=== PATIENT | female | born 1945 | race Caucasian/White ===

== ENCOUNTER 2020-12-03 13:22 | Outpatient (CLI) | payer OTHER | END 2020-12-03 13:40 | disposition home or self-care (01) | LOC: EDBD 13:22 → MAMO-SONO 13:22 | DX: Z12.31 Encounter for screening mammogram for malignant neoplasm of breast (principal) ==

== ENCOUNTER 2021-12-31 07:45 | Outpatient (CLI) | payer OTHER | END 2021-12-31 07:56 | disposition home or self-care (01) | LOC: MAMO-SONO 07:45 | PROVIDERS: ATTEND Internal Medicine | DX: Z12.31 Encounter for screening mammogram for malignant neoplasm of breast (principal); N63.0 Unspecified lump in unspecified breast; E04.1 Nontoxic single thyroid nodule ==

== ENCOUNTER 2022-02-13 14:42 | Outpatient (CLI) | payer OTHER | END 2022-02-13 14:43 | disposition home or self-care (01) | LOC: SONOGRAMA 14:42 | PROVIDERS: ATTEND Pathology Anatomic Pathology & Clinical Pathology | DX: E04.1 Nontoxic single thyroid nodule (principal) ==

== ENCOUNTER 2022-02-27 11:32 | Outpatient (CLI) | payer OTHER | END 2022-02-27 11:40 | disposition home or self-care (01) | LOC: SONOGRAMA 11:32 | PROVIDERS: ATTEND Pathology Anatomic Pathology & Clinical Pathology | DX: N18.2 Chronic kidney disease, stage 2 (mild) (principal) ==

== ENCOUNTER 2023-01-21 09:42 | Outpatient (CLI) | payer OTHER | END 2023-01-21 09:58 | disposition home or self-care (01) | LOC: MRI 09:42 | PROVIDERS: ATTEND Internal Medicine | DX: S83.242A Other tear of medial meniscus, current injury, left knee, initial encounter (principal); M16.12 Unilateral primary osteoarthritis, left hip | CPT/HCPCS: 73718 ==

== ENCOUNTER 2023-02-18 12:14 | Outpatient (CLI) | payer OTHER | END 2023-02-18 12:19 | disposition home or self-care (01) | LOC: RAD 12:14 | PROVIDERS: ATTEND Orthopaedic Surgery | DX: M17.12 Unilateral primary osteoarthritis, left knee (principal); M25.562 Pain in left knee ==

== ENCOUNTER 2023-09-10 13:54 | Outpatient (CLI) | payer OTHER | END 2023-09-10 13:56 | disposition home or self-care (01) | LOC: RAD 13:54 | PROVIDERS: ATTEND Physical Medicine & Rehabilitation | DX: M04.2 Cryopyrin-associated periodic syndromes (principal) ==

== ENCOUNTER 2023-09-15 13:41 | Outpatient (CLI) | payer OTHER | END 2023-09-15 13:52 | disposition home or self-care (01) | LOC: MAMO-SONO 13:41 | PROVIDERS: ATTEND Internal Medicine | DX: N64.4 Mastodynia (principal); R92.8 Other abnormal and inconclusive findings on diagnostic imaging of breast; Z12.31 Encounter for screening mammogram for malignant neoplasm of breast ==

== ENCOUNTER 2025-04-03 15:22 | Emergency (ER) | payer OTHER ==
[~2025-04-03] VITALS: Ht 157.5 cm; Wt 67.6 kg
[2025-04-03] MEDS ORDERED: MORPHINE SULFATE 4 MG/ML CARTRIDGE IV ONE (18:00)
[2025-04-03] MEDS ORDERED: KETOROLAC TROMETHAMINE 15 MG VIAL IV ONE (18:00)
[2025-04-03] MEDS ORDERED: KETOROLAC TROMETHAMINE 30 MG VIAL ONE (18:38)
[2025-04-03 19:19] LABS: BASO % 0.2 % (0.1-1.2); EOS # 0.05 (0.04-0.54); EOS % 0.6 % (0.7-7.0); LYMPH # 1.50 (1.18-3.74); LYMPH % 16.5 % (19.3-53.1); MEAN PLATELET VOLUME 11.10 fl (9.4-12.4); MONO # 0.39 (0.24-0.82); MONO % 4.3 % (4.7-12.5); NEUT # 7.09 (1.56-6.13); NEUT % 78.1 % (34.0-71.1); RED CELL DISTRIBUTION WIDTH 11.9 % (11.6-14.4)
[2025-04-03 20:00] LABS: URINE APPEARANCE Clear; URINE BILIRRUBIN Negative (NEGATIVE); URINE BLOOD Negative; URINE COLOR Yellow; URINE GLUCOSE Negative (NEGATIVE); URINE KETONE Negative (NEGATIVE); URINE LEUKOCYTE Moderate; URINE NITRATE Negative; URINE PROTEIN Negative (NEGATIVE); URINE UROBILINOGEN 0.2 E.U./dl
[2025-04-03 20:05] LABS: URINE BACTERIA 124.7 uL (0.0-1933); URINE EPITHELIAL CELLS 26.4 uL (0.0-38.8); URINE RBC 5.8 uL (0.0-20.8); URINE WBC 47.8 uL (0.0-23.2)
[2025-04-03 20:10] LABS: BUN CREA RATIO 15.0 (7.0-25.0); CREATININE SERUM 1.05 mg/dL (0.55-1.02); GFR 50.56; GLUCOSE FASTING 133.0 mg/dL (65-100); OSMOLALITY SERUM 284.0 MOSM/KG (275-295)
[2025-04-03 20:14] LABS: URINE CAST 0.29 uL (0.0-1.40)
== END 2025-04-03 20:55 | disposition home or self-care (01) ==
LOC: ER 15:22
PROVIDERS: General Practice
DX: M54.9 Dorsalgia, unspecified (principal); I10 Essential (primary) hypertension; Z88.8 Allergy status to other drugs, medicaments and biological substances
CPT/HCPCS: 36415; 96365; 99282; J1885; J2270

== ENCOUNTER 2025-04-20 14:12 | Outpatient (CLI) | payer OTHER | END 2025-04-20 14:17 | disposition home or self-care (01) | LOC: SONOGRAMA 14:12 | PROVIDERS: ATTEND Internal Medicine | DX: N18.2 Chronic kidney disease, stage 2 (mild) (principal); R10.9 Unspecified abdominal pain ==